=== PATIENT | male | born 1965 | race Asian ===

== ENCOUNTER 2018-06-14 17:19 | Inpatient (IN) ==
[2018-06-14] MEDS ORDERED: LORazepam 1 MG Tablet PO PRN (20:34)
[2018-06-14] MEDS ORDERED: Acetaminophen 325 MG Tablet PO PRN (20:34)
[2018-06-14] MEDS ORDERED: Aluminum/Magnesium/Simethacone Susp 30 ML UDC PO PRN (20:34)
[2018-06-14] MEDS ORDERED: Bisacodyl 10 MG Supp RECTAL PRN (20:34)
--- NOTE | 2018-06-15 11:43 | P.HPPSY ---
Provisional Diagnosis Admission Date: June 14, 2018 18:42 [place] I.: Bipolar disorder vs schizoaffective disorder [place] II.: Deferred [place] III.: No medical history [place] IV.: Noncompliance with medication [place] V.: 35 Competence Certification of Person's Competence To Provide Express and Informed Consent I have personally examined Mauro Chavez, a person being served at [facility] on, June 15, 2018 1118. Express and informed consent means consent voluntarily given in writing, by a competent person, after sufficient explanation and disclosure of the subject matter involved to enable the person to make a knowing and willful decision without any element of force, fraud, deceit, duress, or other form of constraint or coercion. This person is 18 years of age or older, is not now known to be incompetent to consent to treatment with a guardian advocate, and does not have a health care surrogate or proxy currently making medical treatment decisions. I have found this person to be one of the following: [] Competent to provide express and informed consent, as defined above, for voluntary admission to this facility and is competent to provide express and informed consent for treatment. He/she has the consistent capacity to make well reasoned, willful, and knowing decisions concerning his or her medical or mental health treatment. The person fully and consistently understands the purpose of the admission for examination/placement and is fully capable of personally exercising all rights assured under [place] Incompetent to provide express and informed consent to voluntary admission, and this is incompetent to provide express and informed consent to treatment. The person must be transferred to involuntary status and a petition for a guardian advocate filed with the Circuit Court. [x] Refusing to provide express and informed consent to voluntary admission but is competent to provide express and informed consent for treatment. The person must be discharged or transferred to involuntary status. Form shall be completed within 24 hours of a person's arrival at the receiving facility and filed in the clinical record of each person: 1. Admitted on a voluntary basis 2. Permitted to provide express and informed consent to his/her own treatment 3. Allowed to transfer from involuntary to voluntary status 4. Prior to permitting a person to consent to his or her own treatment after having been previously found incompetent to consent to treatment. History of Present Illness Capacity: Has capacity History of Present Illness: The patient is a 53-year-old [place] man, domiciled alone in [place], single, unemployed, supported by [facility], with a psychiatric history of bipolar disorder, 1 previous psychiatric hospitalization in 2000, he has been stable since then and olanzapine 20 mg at bedtime, no previous suicide attempts, he denies the use of illegal drugs or alcohol, no significant medical history, who was transferred to the hospital on the Kam act from [facility] because the patient has stopped taking his medications, and he has been disorganized, following people in the street, knocking doors in her neighborhood. I have reviewed the documentation from [facility]. U tox is negative, routine labs are between the normal limits. I also have obtained collateral information from his emily Lamae Jomar, [phone], who explains that the patient has been quite stable for many years until 2 months ago when he decided to stop his medications. Apparently the patient has been stating that he has been doing much better and he did not need to take more medications. Since then he has been decompensating little by little. Apparently, in the last 2 weeks the patient has been walking long distances in the street, not sleeping, not taking showers, he has not been himself, not making a lot of sense, he has been witnessed in her neighborhood constantly exercising, following people in the street, knocking doors of neighbors without purpose. On my psychiatric evaluation along with DAIJA Hampton and Nurse in charge, I find the patient in 2700 exercising in the [place]. The patient is making very odd movements. He is very calm and cooperative she is to be in a very good mood and spirit. Patient reports that he does not even know the reason he is here. He says that he has been doing okay, has been quite happy, "just exercising very often to have energy". He seems to be insight less about his psychiatric condition. He reports having a good mood, denies depressive symptoms, denies anhedonia, denies hopelessness, denies helplessness, denies suicidal and homicidal ideation , denies visual and auditory hallucinations at the moment. He does seem to be either be guarded, internally preoccupied and paranoid, stating that his family want him here to steal his money. He does seem to be very hyperactive, restless , unable to stay still. Initially he told me that he does not have a psychiatric illness. When I confronted him about previous hospitalization, he says that that was a long time ago he stopped taking his medications because he was doing fine. He is fully oriented 3, no attention deficit, no fluctuation of consciousness present. He does not have pressured speech, he does not have a prominent loosening of associations, a prominent thought disorder at this moment. PPHx: psychiatric history of bipolar disorder, 1 previous psychiatric hospitalization in 2000, he has been stable since then and olanzapine 20 mg at bedtime, no previous suicide attempts, PMHx: no significant medical history Family Hx: No family psychiatric Substance Hx: he denies the use of illegal drugs or alcohol Social Hx: He was born and raised in [facility], domiciled alone in [place], single, unemployed, supported by [facility], his highest level of education is 8th grade - Inpatient Certification I certify that the inpatient services were ordered in accordance with Medicare regulations governing the order. This includes certification that hospital inpatient services are reasonable and necessary and in the case of services not specified as inpatient-only under 42 CFR 419.22(n), that they are appropriately provided as inpatient services in accordance to with the 2-midnight benchmark under 43 CFR 412.3(e) I certify that inpatient psychiatric hospital services are medically necessary. Evaluation and treatment and/or diagnostic testing are expected to improve the patient's condition. The patient needs on a daily basis, active treatment furnished directly by or requiring the supervision of inpatient psychiatric facility personnel. Estimated Total Length of Stay (Days): 7 Plans for Post Hospital Care: Not yet determined Review of Systems All other systems reviewed negative except as stated in HPI Psychiatric: Reports abnormal sleep pattern, Reports anxiety, Reports mood swings, Reports paranoia PMFSH - History History Provided By: Patient - Tobacco History Second Hand Smoke Exposure: No Tobacco Use In Past 30 Days: Yes Smoking Status: Heavy tobacco smoker Tobacco Type: Cigarettes - Alcohol History How Often Do You Have a Drink Containing Alcohol: Never - Substance Use History Substance History: No History of Abuse - Travel History Recent Travel in the USA Within the Last 8 Weeks: No Recent Travel Out of the Country Within the Last 8 Weeks: No - Immunization History Tetanus Immunization: Unsure Hx Influenza Vaccine This Season: No Medications and Allergies Active Medications: Active Medications Acetaminophen (Tylenol) 650 mg PO Q6H PRN PRN Reason: Pain 1-5 or Temp >101F Al Hydrox/Mg Hydrox/Simethicone (Mag-Al Plus Susp Liq) 30 ml PO Q6H PRN PRN Reason: DYSPEPSIA Al Hydroxide/Mg Hydroxide (Milk Of Magnesia Liq) 30 ml PO Q12H PRN PRN Reason: Mild Constipation Bisacodyl (Dulcolax Supp) 10 mg RECTAL DAILY PRN PRN Reason: SEVERE CONSITIPATION Diphenhydramine HCl (Benadryl) 50 mg PO HS PRN PRN Reason: INSOMNIA Lactulose (Lactulose Liq) 30 ml PO DAILY PRN PRN Reason: SEVERE CONSITIPATION Lorazepam (Ativan) 1 mg PO Q6H PRN PRN Reason: MODERATE TO SEVERE ANXIETY Sennosides (Senokot) 17.2 mg PO Q12H PRN PRN Reason: Moderate Constipation Allergies Allergy/AdvReac Type Severity Reaction Status Date / Time No Known Allergies Allergy Unverified 06/14/18 18:49 Exam Vital signs: Vital Signs 06/14/18 18:40 06/14/18 19:17 06/15/18 05:47 Temperature 97.7 F 97.7 F 98.1 F Pulse Rate 72 72 78 Respiratory Rate 19 17 Blood Pressure 118/70 118/70 105/55 L Pulse Oximetry 97 97 100 Intake & Output 06/14/18 06/15/18 06/15/18 18:59 06:59 18:59 Weight 66.5 kg Other: Weight On Admission 66.5 kg Narrative: Patient is quite hyperactive, restless, but no EPS, no catatonia, no gait disturbance present Mental Status Examination Appearance: Appropriate Consciousness: Alert Orientation: x4 Speech: Rapid Language: Adequate Fund of Knowledge: Adequate Attention and Concentration: Adequate Memory: Unremarkable Mood: Manic Affect: Other (elevated ) Thought Content: Bizarre thinking, Delusional Delusion Type: Paranoid Suicidal Ideation: No Suicidal Plan: No Suicidal Intention: No Homicidal Ideation: No Homicidal Plan: No Homicidal Intention: No Insight: Poor Judgment: Poor Assessment and Plan - Assessment (1) Bipolar 1 disorder Code(s): F31.9 - Bipolar disorder, unspecified Status: Acute - Plan Plan: Estimated LOS: [] days On my psychiatric evaluation I find a patient that is quite bizarre, oddly related, restless. His speech is rapid, but no pressure, prominent paranoia, internal preoccupation, poor judgment. As per family members since the patient stopped taking his medication he has being not himself, is sleeping very poorly , walking constantly, very hyperactive, exercising numerous hours, following people in the street, acting very erratically and putting in danger his integrity and others. He is a patient with a psychiatric history of bipolar disorder, he has been a stable for several years, but he had a hospitalization in 2000. At this moment patient seems to be acutely manic with psychotic features. He needs psychiatric hospitalization for stabilization. I will restart olanzapine 5 mg twice daily. I will consult psychiatry for second opinion. building maintenance worker intervention for additional collateral information, individual and group activities, psychosocial assessment and also to coordinate safe discharge. Justification for Continued Inpatient Stay: Continue psychiatric admission for stabilization
--- NOTE | 2018-06-15 14:34 | ECG ---
Date Performed: 06/15/2018 Time Performed: 12:19:40 PTAGE: 53 years EKG: Sinus rhythm NORMAL ECG NO PREVIOUS TRACING DOCTOR: Jd Weiss Interpretating Date/Time 06/15/2018 14:29:26
--- NOTE | 2018-06-16 13:42 | P.CONPSY ---
Provisional Diagnosis Admission Date: June 14, 2018 18:42 [place] I.: Bipolar disorder vs schizoaffective disorder [place] II.: Deferred [place] III.: No medical history [place] IV.: Noncompliance with medication [place] V.: 35 History of Present Illness Service: Psychiatry Consult date: 06/16/18 Reason for Consult: 2nd opinion Primary Care Provider: UNKNOWN Chief Complaint: "Is it time to go home?" History of Present Illness: Pt is a 53 YOAM with a hx of bipolar disorder who was admitted to [facility] under a BA due to psychosis. Pt stopped medications 2 months ago. He states that he does not need medication and feels "great". He has been observed on the unit, engaging in bizarre behaviors and is note to have psychomotor agitation. He laughs inappropriately and mood is quite euphoric. Staff report that pt has been instrusive and doing yoga and ta chi moves in the dayroom non stop for hours because he has "so much energy". He refused morning dose of olanzapine but states that he will take it all at bedtime. Self care is poor and pt requires redirection for proper social functioning. PHx: psychiatric history of bipolar disorder, 1 previous psychiatric hospitalization in 2000, he had been stable on regimen of olanzapine 20 mg po QHS which he tolerated without side effects. He states he stopped because he didn't need it and it made him sleep at night, no previous suicide attempts, PMHx: no significant medical history Family Hx: No family psychiatric Substance Hx: he denies the use of illegal drugs or alcohol Social Hx: He was born and raised in [facility] [place], domiciled alone in [place], single, unemployed, supported by [facility], his highest level of education is 8th grade [employer] - History History Provided By: Patient - Tobacco History Second Hand Smoke Exposure: No Tobacco Use In Past 30 Days: Yes Smoking Status: Heavy tobacco smoker Tobacco Type: Cigarettes - Alcohol History How Often Do You Have a Drink Containing Alcohol: Never - Substance Use History Substance History: No History of Abuse - Travel History Recent Travel in the [place] Within the Last 8 Weeks: No Recent Travel Out of the Country Within the Last 8 Weeks: No - Immunization History Tetanus Immunization: Unsure Hx Influenza Vaccine This Season: No Medications and Allergies Active Medications: Active Medications Acetaminophen (Tylenol) 650 mg PO Q6H PRN PRN Reason: Pain 1-5 or Temp >101F Al Hydrox/Mg Hydrox/Simethicone (Mag-Al Plus Susp Liq) 30 ml PO Q6H PRN PRN Reason: DYSPEPSIA Al Hydroxide/Mg Hydroxide (Milk Of Magnesia Liq) 30 ml PO Q12H PRN PRN Reason: Mild Constipation Bisacodyl (Dulcolax Supp) 10 mg RECTAL DAILY PRN PRN Reason: SEVERE CONSITIPATION Diphenhydramine HCl (Benadryl) 50 mg PO HS PRN PRN Reason: INSOMNIA Lactulose (Lactulose Liq) 30 ml PO DAILY PRN PRN Reason: SEVERE CONSITIPATION Lorazepam (Ativan) 1 mg PO Q6H PRN PRN Reason: MODERATE TO SEVERE ANXIETY Olanzapine (Zyprexa Zydis Odt) 5 mg PO BID YUNG Last Admin: 06/16/18 09:25 Dose: Not Given Sennosides (Senokot) 17.2 mg PO Q12H PRN PRN Reason: Moderate Constipation Allergies Allergy/AdvReac Type Severity Reaction Status Date / Time No Known Allergies Allergy Unverified 06/14/18 18:49 Exam Vital signs: Vital Signs 06/16/18 06:05 Temperature 98.4 F Pulse Rate 74 Respiratory Rate 17 Blood Pressure 110/67 Pulse Oximetry 100 Mental Status Examination Appearance: Appropriate Consciousness: Alert Orientation: x4 Speech: Rapid Language: Adequate Fund of Knowledge: Adequate Attention and Concentration: Adequate Memory: Unremarkable Mood: Manic Affect: Other (elevated ) Thought Content: Bizarre thinking, Delusional Delusion Type: Paranoid Suicidal Ideation: No Suicidal Plan: No Suicidal Intention: No Homicidal Ideation: No Homicidal Plan: No Homicidal Intention: No Insight: Poor Judgment: Poor Assessment and Plan - Assessment (1) Bipolar 1 disorder Code(s): F31.9 - Bipolar disorder, unspecified Status: Acute - Plan Plan: I agree that pt meets criteria for involuntary hospitalization. 2nd opinion paperwork completed Justification for Continued Inpatient Stay: impairments in self care and social functioning
[2018-06-16] MEDS ORDERED: OLANZapine 10 MG ODT Tablet PO SCH (21:00)
--- NOTE | 2018-06-17 14:08 | P.PNPSY ---
Subjective Remarks: The patient was seen today for psychiatric reevaluation. Case was discussed with nurse in charge. On my psychiatric evaluation the patient still a little bit restless, intrusive, but reports feeling better today, he is quite focus in getting discharged today. Reports good appetite, good level of energy, good sleep, denies suicidal and homicidal ideation, denies visual and auditory hallucinations. Compliant medications, no significant side effects reported. The patient has being walking back and forward in the unit, at times a little bit intrusive, talkative, exercising very frequently, yesterday was cleaning the unit quite often, but he is usually redirectable. Mental Status Examination Appearance: Appropriate Consciousness: Alert Orientation: x4 Speech: Rapid Language: Adequate Fund of Knowledge: Adequate Attention and Concentration: Adequate Memory: Unremarkable Mood: Manic Affect: Other (elevated ) Thought Content: Bizarre thinking, Delusional Delusion Type: Paranoid Suicidal Ideation: No Suicidal Plan: No Suicidal Intention: No Homicidal Ideation: No Homicidal Plan: No Homicidal Intention: No Insight: Poor Judgment: Poor Assessment and Plan - Assessment (1) Bipolar 1 disorder Code(s): F31.9 - Bipolar disorder, unspecified Status: Acute - Plan Plan: Patient continues to present manic symptoms, restlessness, goal-directed activity, purposeless activities, talkative, at times disruptive, but he seems to be responding appropriately to psychotropics. I will increase today the olanzapine to 15 mg at bedtime. Schedule a family meeting tomorrow to plan disposition. Justification for Continued Inpatient Stay: Patient continues to be acutely manic.
[2018-06-17] MEDS ORDERED: OLANZapine 15 MG ODT Tablet PO SCH (21:00)
--- NOTE | 2018-06-18 13:56 | P.PNPSY ---
Subjective Remarks: The patient was seen today for psychiatric reevaluation. We also have a family meeting with his family, his niece Piotr Hadley and Sister Rafy, were present. They were able to tell me a little more about patient's life, they saw the patient and they feel that he is not a baseline jet. They do clarified that the patient is hyperactive, that he does not exercise quite often, at times he becomes disorganized, but the problem is that in the last days that he has no be respecting peoples boundaries, has been knocking doors, asking people for money and acting bizarrely. Today the patient becomes quite irritable for of his family, start making accusations and requesting to be discharged. During the evaluation the patient reports that he is a smarter that me and people in this hospital that he can read people's mind in the Unit. Nurses report that the patient continues to be intrusive in the unit, very hyperactive, talkative, touching of the other patients, getting inside others people room, has to be redirected very often. However, he has been compliant his medications, no significant side effects. No agitation or aggressive behavior reported. Mental Status Examination Appearance: Appropriate Consciousness: Alert Orientation: x4 Speech: Rapid Language: Adequate Fund of Knowledge: Adequate Attention and Concentration: Adequate Memory: Unremarkable Mood: Manic Affect: Other (elevated ) Thought Content: Bizarre thinking, Delusional Delusion Type: Paranoid Suicidal Ideation: No Suicidal Plan: No Suicidal Intention: No Homicidal Ideation: No Homicidal Plan: No Homicidal Intention: No Insight: Poor Judgment: Poor Assessment and Plan - Assessment (1) Bipolar 1 disorder Code(s): F31.9 - Bipolar disorder, unspecified Status: Acute - Plan Plan: I will increase to daily olanzapine to 20 mg at bedtime to help with psychotic behavior/thought process with rahel. Support, motivational psychoeducation provided. Justification for Continued Inpatient Stay: Patient is acutely manic/psychotic
[2018-06-18] MEDS: OLANZapine 20 MG Tab.Rapdis PO SCH (20:19)
--- NOTE | 2018-06-19 14:37 | P.PNPSY ---
Subjective Remarks: The patient was seen today for psychiatric reevaluation. The patient was found in his room laying down, not sleeping. Does not seem to be sedated or sleepy. He reports feeling much better, today he does not seem to be so disruptive, at least he is not jumping on me requesting to be discharged. He denies being in a good mood, denies anhedonia, denies hopelessness, denies helplessness, he is oriented x3, logical, coherent and relevant. Does not seem to be as talkative as he was before. Less focus in exercising. He denies suicidal and homicidal ideation, denies visual and auditory hallucinations. Compliant medications, no significant side effects. As per nurses, patient has been walking back and forward in the unit, intrusive at times, but in general doing much better. Mental Status Examination Appearance: Appropriate Consciousness: Alert Orientation: x4 Speech: Rapid Language: Adequate Fund of Knowledge: Adequate Attention and Concentration: Adequate Memory: Unremarkable Mood: Manic Affect: Other (elevated ) Thought Content: Bizarre thinking, Delusional Delusion Type: Paranoid Suicidal Ideation: No Suicidal Plan: No Suicidal Intention: No Homicidal Ideation: No Homicidal Plan: No Homicidal Intention: No Insight: Poor Judgment: Poor Assessment and Plan - Assessment (1) Bipolar 1 disorder Code(s): F31.9 - Bipolar disorder, unspecified Status: Acute - Plan Plan: Continue current psychotropic regimen. Patient seems to be responding appropriately to olanzapine 20 mg. Brief supportive psychotherapy, psychoeducation and motivation provided. Justification for Continued Inpatient Stay: Patient has an elevated risk to decompensate at a lower level of care.
[2018-06-19 15:25] VITALS: RESP 18; O2SAT 99
[2018-06-19] MEDS: OLANZapine 20 MG Tab.Rapdis PO SCH (20:21)
[2018-06-20 06:09] VITALS: BP 107/64; PULSE 82; TEMP 97.4
--- NOTE | 2018-06-20 14:04 | P.DSPSY ---
Psychiatry Discharge Summary Inpatient Psychiatric care?: Yes Advance Directives: No Reason for Unknown:: Other Other Reason for Unknown: NONE PROVIDED Mental Health Advance Directive: No Health Care Proxy: No - Admission Admission Date: June 14, 2018 18:42 - Admission Diagnosis (1) Bipolar 1 disorder Code(s): F31.9 - Bipolar disorder, unspecified Brief History: The patient is a 53-year-old [place] man, domiciled alone in [place], single, unemployed, supported by [facility], with a psychiatric history of bipolar disorder, 1 previous psychiatric hospitalization in 2000, he has been stable since then and olanzapine 20 mg at bedtime, no previous suicide attempts, he denies the use of illegal drugs or alcohol, no significant medical history, who was transferred to the hospital on the [facility] act from [facility] because the patient has stopped taking his medications, and he has been disorganized, following people in the street, knocking doors in her neighborhood. I have reviewed the documentation from [facility]. U tox is negative, routine labs are between the normal limits. I also have obtained collateral information from his emily Olivier Jomar, [id number], who explains that the patient has been quite stable for many years until 2 months ago when he decided to stop his medications. Apparently the patient has been stating that he has been doing much better and he did not need to take more medications. Since then he has been decompensating little by little. Apparently, in the last 2 weeks the patient has been walking long distances in the street, not sleeping, not taking showers, he has not been himself, not making a lot of sense, he has been witnessed in her neighborhood constantly exercising, following people in the street, knocking doors of neighbors without purpose. On my psychiatric evaluation along with DAIJA Hampton and Nurse in charge, I find the patient in [id number] exercising in the [place]. The patient is making very odd movements. He is very calm and cooperative she is to be in a very good mood and spirit. Patient reports that he does not even know the reason he is here. He says that he has been doing okay, has been quite happy, "just exercising very often to have energy". He seems to be insight less about his psychiatric condition. He reports having a good mood, denies depressive symptoms, denies anhedonia, denies hopelessness, denies helplessness, denies suicidal and homicidal ideation , denies visual and auditory hallucinations at the moment. He does seem to be either be guarded, internally preoccupied and paranoid, stating that his family want him here to steal his money. He does seem to be very hyperactive, restless , unable to stay still. Initially he told me that he does not have a psychiatric illness. When I confronted him about previous hospitalization, he says that that was a long time ago he stopped taking his medications because he was doing fine. He is fully oriented 3, no attention deficit, no fluctuation of consciousness present. He does not have pressured speech, he does not have a prominent loosening of associations, a prominent thought disorder at this moment. PPHx: psychiatric history of bipolar disorder, 1 previous psychiatric hospitalization in 2000, he has been stable since then and olanzapine 20 mg at bedtime, no previous suicide attempts, PMHx: no significant medical history Family Hx: No family psychiatric Substance Hx: he denies the use of illegal drugs or alcohol Social Hx: He was [place] and [place] in [facility] [place] [facility], domiciled alone in [place], single, unemployed, supported by [facility], his highest level of education is 8th grade Tobacco Use In Past 30 Days: Yes How Often Do You Have a Drink Containing Alcohol: Never Hospital Course: The patient was admitted in psychiatry with symptomatology of rahel consistent on hyperactivity, pressured speech, disorganized behavior, paranoia, decreased sleep, grandiose delusions. An initial psychiatric and psychosocial assessment were performed. The patient was started on olanzapine 5 mg daily that was titrated up to 20 in the course of 5 days. Safety measures were taken. I discussed initial assessment and plan with the family as well as I had with social media senior associate a family meeting with his sister and niece. During the hospitalization initially the patient was manic, but he showed a good response to the psychotropic regimen to the point that his symptoms improve significantly. By the moment of the discharge the patient is more engaged, less hyperactive, less pressure, but still having some bizarre and paranoid delusions. The patient has demonstrated compliant with medication, no significant side effects, no agitation or aggressive behavior during this hospitalization. The patient is being discharge by court order. Family will be informed about this decision. He will be discharged with olanzapine 20 mg at bedtime and outpatient care in [facility]. - Discharge Discharge Date: 06/20/18 - Discharge Diagnosis (1) Bipolar 1 disorder Code(s): F31.9 - Bipolar disorder, unspecified Status: Acute Discharge Disposition: Home - Discharge Instructions Discharge Diet: Regular Diet - Discharge Time > 30 minutes Mental Status Examination Appearance: Appropriate Consciousness: Alert Orientation: x4 Speech: Rapid Language: Adequate Fund of Knowledge: Adequate Attention and Concentration: Adequate Memory: Unremarkable Mood: Manic Affect: Other (elevated ) Thought Content: Bizarre thinking, Delusional Delusion Type: Paranoid Suicidal Ideation: No Suicidal Plan: No Suicidal Intention: No Homicidal Ideation: No Homicidal Plan: No Homicidal Intention: No Insight: Fair Judgment: Impulsive Discharge/Advance Care Plan - Results Vital Signs: Last Vital Signs Temp 97.4 F L 06/20/18 06:08 Pulse 82 06/20/18 06:08 Resp 18 06/19/18 15:24 BP 107/64 06/20/18 06:08 Pulse Ox 99 06/19/18 15:24 Lab Results: None Summary of Procedures: None Pending Results: None - Medications Number of antipsychotic medications at discharge: 1 - Discharge Care Plan Goals to Promote Your Health: * To prevent worsening of your condition and complications * To maintain your health at the optimal level Directions to Meet Your Goals: Take your medications as prescribed Follow your dietary instruction Follow activity as directed Keep your appointments as scheduled Take your immunizations and boosters as scheduled If your symptoms worsen call your PCP, if no PCP go to Urgent Care Center or Emergency Room For 16/04 questions related to your inpatient stay or results of tests pending at discharge, please contact Dr. Mason Pandya MD at Smoking is Dangerous to Your Health. Avoid second hand smoking
== END 2018-06-20 16:45 | disposition home or self-care (01) ==
LOC: H270 18:42
PROVIDERS: ADMIT Psychiatry & Neurology Psychiatry; ATTEND Psychiatry & Neurology Psychiatry